=== PATIENT | female | born 1965 | race Caucasian/White ===

== ENCOUNTER 2016-08-24 11:38 | Emergency (ER) | payer BC, OTHER ==
[2016-08-24] MEDS ORDERED: ASPIRIN 81 MG CHEW PO STA (11:55)
--- NOTE | 2016-08-24 11:57 | ED ---
Chest Pain HPI - General Chief Complaint: Chest Pain Stated Complaint: Chest Pain Time Seen by Provider: 08/24/16 11:51 Source: patient, EMS Mode of arrival: EMS Limitations: no limitations - History of Present Illness Initial Comments: This 50-year-old white female presents with a complaint of some chest pain. She describes this as a lower sternal stabbing chest pain that occurred on 2 occasions just shortly prior to arrival. It only lasted 1 second. It then occurred again when she is getting off the gurney onto the cart in the ER. She denies any shortness of breath. She states that it seems radiate posteriorly when it occurs. There is no current chest pain. She denies any history of previous similar incidents. She denies a history of coronary artery disease, myocardial infarction, DVT, or PE. There is no leg pain or swelling. She denies any trauma to the chest. No other complaints or modifying factors. No abdominal pain. - Related Data Home Medications Medication Instructions Recorded Confirmed No Known Home Medications [No 08/24/16 08/24/16 Known Home Medications] Allergies Allergy/AdvReac Type Severity Reaction Status Date / Time No Known Allergies Allergy Verified 08/24/16 12:24 Review of Systems ROS Statement: Those systems with pertinent positive or pertinent negative responses have been documented in the HPI. ROS Other: All systems not noted in ROS Statement are negative. Past Medical History Past Medical History: No Reported History History of Any Multi-Drug Resistant Organisms: None Reported Past Surgical History: Hernia Repair Additional Past Surgical History / Comment(s): DNC Past Psychological History: No Psychological Hx Reported Smoking Status: Current every day smoker Past Alcohol Use History: Occasional Past Drug Use History: None Reported General Exam - General Exam Comments Initial Comments: GENERAL: The patient is well nourished and well hydrated. VITAL SIGNS: Heart rate, blood pressure, respiratory rate reviewed as recorded in nurse's notes. EYES: Pupils are round and reactive. Extraocular movements are intact. No conjunctival / lid redness or swelling. ENT: No external evidence of injury, swelling, or ecchymosis. Airway is patent. Throat is clear. NECK: Nontender. No swelling or evidence of injury. No subcutaneous emphysema. Trachea is midline. No thyroid mass. HEART: Regular rate and rhythm. Good peripheral pulses. LUNGS/CHEST: Breath sounds clear and equal bilaterally. No rales, rhonchi, or wheezes. No ecchymosis, subcutaneous emphysema, or tenderness. ABDOMEN: Abdomen soft without tenderness. No palpable masses or organomegaly. No peritoneal signs. No abdominal wall swelling or ecchymosis. EXTREMITIES: No extremity tenderness. Normal muscle tone and function. No thoracolumbar tenderness. No calf swelling. NEUROLOGIC: Sensation is grossly intact. Cranial nerve exam reveals face is symmetrical, tongue is midline, speech is clear. SKIN: No abrasions or ecchymosis is noted. No induration or masses noted. PSYCHIATRIC: Alert and oriented. Appropriate behavior and judgment. Limitations: no limitations Course Vital Signs 08/24/16 08/24/16 08/24/16 11:48 13:31 14:32 Temperature 97.9 F 97.4 F L Pulse Rate 87 63 53 L Respiratory 18 18 16 Rate Blood Pressure 158/90 153/78 131/72 O2 Sat by Pulse 100 100 99 Oximetry Chest Pain MDM - MDM The patient was seen and examined. All diagnostics were reviewed. EKG was done and shows a normal sinus rhythm at a rate of 67. There is evidence of a left axis deviation. There is no ST elevation. There is nonspecific ST-T wave changes noted in 3 and aVF. The FL interval is 170, QRS duration is 72, and QTC intervals 433. The chest x-ray was reviewed by myself and does not show any acute abnormalities. The laboratories all essentially within normal limits with a negative troponin and d-dimer. Her chest pain appears to be fairly atypical for any cardiac ischemic disorder. Nevertheless, she is offered admission to the hospital for further workup. She refuses. Risks benefits were discussed. Return parameters are discussed. She leaves in no identifiable distress. She's not had any further episodes while in the ER. Is felt as though she should have close follow-up with her primary doctor and stress testing preferably within the next 2 days. She is agreeable leaves in no distress. Disposition Clinical Impression: Chest pain Disposition: HOME SELF-CARE Condition: Good Instructions: Chest Pain (ED) Additional Instructions: Please take an aspirin daily. Referrals: Will Andino DO [Primary Care Provider] - 1-2 days Time of Disposition: 14:53
[2016-08-24 12:16] LABS: Basophils % (A) 0 %; CH 34.4; CHCM 33.3; Eosinophils # (A) 0.1 k/uL (0-0.7); Eosinophils % (A) 1 %; HCT 39.4 % (34.0-46.0); HDW 1.79; HGB 13.1 gm/dL (11.4-16.0); Luc # (Auto) 0.09; Luc % (Auto) 3; Lymphocytes # (A) 1.5 k/uL (1.0-4.8); Lymphocytes % (A) 42 %; MCH 34.6 pg (25.0-35.0); MCHC 33.4 g/dL (31.0-37.0); MCV 103.9 fL (80.0-100.0); Macrocytosis Slight; Mean Platelet Volume 7.5; Monocytes # (A) 0.3 k/uL (0-1.0); Monocytes % (A) 9 %; Neutrophils # (A) 1.6 k/uL (1.3-7.7); Neutrophils % (A) 45 %; RBC 3.79 m/uL (3.80-5.40); RDW 12.4 % (11.5-15.5); WBC 3.6 k/uL (3.8-10.6); WBC (Perox) 3.64
[2016-08-24 12:29] LABS: INR 1.1 (<1.1); Partial Thromboplastin Time 24.9 sec (22.0-30.0); Prothrombin Time 10.7 sec (9.0-12.0)
[2016-08-24 12:36] LABS: ALT 26 U/L (9-52); AST 29 U/L (14-36); Alkaline Phosphatase 56 U/L (38-126); Anion Gap 8 mmol/L; Blood Urea Nitrogen 6 mg/dL (7-17); Calcium 9.1 mg/dL (8.4-10.2); Carbon Dioxide 26 mmol/L (22-30); Chloride 103 mmol/L (98-107); Glucose 89 mg/dL (74-99); Magnesium 1.8 mg/dL (1.6-2.3); Non-African American GFR(MDRD) >60 (>60 ml/min/1.73 sqM); Potassium 3.8 mmol/L (3.5-5.1); Sodium 137 mmol/L (137-145); Total Protein 7.4 g/dL (6.3-8.2)
[2016-08-24 12:39] LABS: Creatine Kinase 54 U/L (30-135)
[2016-08-24 12:52] LABS: Creatine Kinase MB 0.4 ng/mL (0.0-2.4); Troponin I <0.012 ng/mL (0.000-0.034)
[2016-08-24 14:33] VITALS: BP 131/72; PULSE 53; RESP 16; TEMP 97.4
--- NOTE | 2016-08-24 14:54 | XR ---
EXAMINATION TYPE: XR chest 2V DATE OF EXAM: 08/24/2016 1:32 PM COMPARISON: NONE INDICATION: Chest pain TECHNIQUE: 2 view chest FINDINGS: The heart size is normal. The pulmonary vasculature is normal. The lungs are clear. IMPRESSION: 1. No acute pulmonary process.
== END 2016-08-24 15:01 | disposition home or self-care (01) ==
LOC: EC 11:38
DX: R07.2 Precordial pain (principal); F17.200 Nicotine dependence, unspecified, uncomplicated
CPT/HCPCS: 36415; 71020; 80053; 82550; 82553; 83735; 84484; 85025; 85379; 85610; 85730; 93005; 99285

== ENCOUNTER → 2016-10-05 | Outpatient (CLI) | payer BC, OTHER ==
--- NOTE | 2016-10-06 09:19 | MM ---
Reason for exam: screening (asymptomatic). Last mammogram was performed 12 years and 3 months ago. Physical Findings: A clinical breast exam by your physician is recommended on an annual basis and results should be correlated with mammographic findings. MG Screening Mammo w CAD Bilateral CC and MLO view(s) were taken. Prior study comparison: July 08, 2004, bilateral diagnostic mammogram. January 03, 2002, bilateral screening mammogram, performed at [facility]. The breast tissue is heterogeneously dense. This may lower the sensitivity of mammography. Focal asymmetry far posterior left CC view partially imaged. This finding is changed when compared with previous exams. ASSESSMENT: Incomplete: need additional imaging evaluation, BI-RAD 0 RECOMMENDATION: Special view mammogram of the left breast. If lesion persists on supplemental views, image directed ultrasound is recommended. [facility] will attempt to contact patient to return for supplemental views and ultrasound if indicated.
== END | disposition home or self-care (01) ==
LOC: RADMAMWWP 12:24
PROVIDERS: ATTEND Obstetrics & Gynecology
DX: Z12.31 Encounter for screening mammogram for malignant neoplasm of breast (principal)

== ENCOUNTER → 2016-10-13 | Outpatient (CLI) | payer BC, OTHER ==
--- NOTE | 2016-10-13 08:30 | MM ---
Reason for exam: additional evaluation requested from abnormal screening. Last mammogram was performed less than 1 month ago. Physical Findings: Nurse did not find any significant physical abnormalities on exam. MG Work Up Mamm w CAD LT Spot compression CC and ML view(s) were taken of the left breast. Prior study comparison: October 05, 2016, bilateral MG screening mammo w CAD. July 08, 2004, bilateral diagnostic mammogram. The breast tissue is extremely dense which could obscure a lesion on mammography. There is no discrete abnormality. Compression and ML view normal. These results were verbally communicated with the patient and result sheet given to the patient on 10/13/16. ASSESSMENT: Benign, BI-RAD 2 RECOMMENDATION: Return to routine screening mammogram schedule for both breasts.
== END | disposition home or self-care (01) ==
LOC: RADMAMWWP 07:36
PROVIDERS: ATTEND Obstetrics & Gynecology
DX: R92.8 Other abnormal and inconclusive findings on diagnostic imaging of breast (principal); R92.2 Inconclusive mammogram

== ENCOUNTER → 2017-10-21 | Outpatient (CLI) | payer OTHER ==
--- NOTE | 2017-10-25 08:17 | MM ---
Reason for exam: screening (asymptomatic). Last mammogram was performed 1 year ago. Physical Findings: A clinical breast exam by your physician is recommended on an annual basis and results should be correlated with mammographic findings. MG Screening Mammo w CAD Bilateral CC and MLO view(s) were taken. XCCL view(s) were taken of the right breast. Prior study comparison: October 05, 2016, bilateral MG screening mammo w CAD. There is chronic nodularity in the right breast. No significant changes when compared with prior studies. ASSESSMENT: Negative, BI-RAD 1 RECOMMENDATION: Routine screening mammogram of both breasts in 1 year.
== END | disposition home or self-care (01) ==
LOC: RADMAMWWP 07:18
PROVIDERS: ATTEND Obstetrics & Gynecology
DX: Z12.31 Encounter for screening mammogram for malignant neoplasm of breast (principal)
CPT/HCPCS: 77067

== ENCOUNTER 2019-11-05 09:01 | Day surgery (SDC) | payer OTHER ==
[2019-10-31 14:49] VITALS: BMI 22.3
[~2019-11-05 09:01] MED LIST: LIDOCAINE 1% (10MG/ML) FOR IV START INTRADERMA PRN
[2019-11-05 09:37] VITALS: RESP 16; TEMP 98.4
[2019-11-05] MEDS: LACTATED RINGERS 1,000 ML IV SCH ×2 (09:48→09:49)
[2019-11-05] MEDS ORDERED: PROPOFOL 10 MG/ML 20 ML VIAL IV ONE (09:48)
--- NOTE | 2019-11-05 10:16 | P.PCN ---
Date of Procedure: 11/05/19 Description of Procedure: BRIEF HISTORY: Patient is a 54-year-old female presenting for outpatient colonoscopy. Screening for malignant neoplasm colon. No change in bowel habits. No family history of colon cancer. No prior colonoscopy. PROCEDURE PERFORMED: Colonoscopy. PREOPERATIVE DIAGNOSIS: Screening for malignant neoplasm of the colon, no prior colonoscopy. ESTIMATED BLOOD LOSS: Minimal. IV sedation per Anesthesia. PROCEDURE: After informed consent was obtained, the patient, was brought into the endoscopy unit. IV sedation was administered by Anesthesia under continuous monitoring. Digital rectal examination was normal. Initially the Olympus CF-190 flexible video colonoscope was then inserted in the rectum, gradually advanced into the cecum without any difficulty. Careful examination was performed as the scope was gradually being withdrawn. Ileocecal valve and the appendiceal orifice were visualized and appeared normal. Prep was excellent. Mucosa of the cecum, ascending colon, transverse colon, descending colon, sigmoid colon, and rectum appeared normal, somewhat redundant and dilated however no abnormalities seen. Retroflexion was performed in the rectum and no lesions were seen, low-grade internal hemorrhoids noted. The patient tolerated the procedure well. IMPRESSION: Normal-appearing colon from rectum to cecum . RECOMMENDATIONS: Findings of this examination were discussed with the patient. Okay to resume diet. Okay to resume medication. Would recommend repeat colonoscopy in 10 years for screening, or sooner if any signs or symptoms which warrant further evaluation develop.
[2019-11-05 10:52] VITALS: BP 137/82; PULSE 67
== END 2019-11-05 11:13 | disposition home or self-care (01) ==
LOC: ORWHC2ENDO 09:01
PROVIDERS: ATTEND Internal Medicine
DX: Z12.11 Encounter for screening for malignant neoplasm of colon (principal); I34.0 Nonrheumatic mitral (valve) insufficiency; F17.200 Nicotine dependence, unspecified, uncomplicated; Z98.890 Other specified postprocedural states
CPT/HCPCS: 81025; J2704; G0121

== ENCOUNTER → 2020-01-25 | Outpatient (CLI) | payer OTHER ==
--- NOTE | 2020-01-29 12:01 | MM ---
Reason for exam: screening (asymptomatic). Last mammogram was performed 2 years and 3 months ago. History: Family history of breast cancer in maternal grandmother at age 60. Physical Findings: A clinical breast exam by your physician is recommended on an annual basis and results should be correlated with mammographic findings. MG Screening Mammo w CAD Bilateral CC and MLO view(s) were taken. Prior study comparison: October 21, 2017, bilateral MG screening mammo w CAD. October 13, 2016, left breast MG work up mamm w CAD LT. The breast tissue is heterogeneously dense. This may lower the sensitivity of mammography. Benign appearing bilateral calcifications. No significant changes when compared with prior studies. ASSESSMENT: Benign, BI-RAD 2 RECOMMENDATION: Routine screening mammogram of both breasts in 1 year.
== END | disposition home or self-care (01) ==
LOC: RADMAMWWP 16:25
PROVIDERS: ATTEND Obstetrics & Gynecology
DX: Z12.31 Encounter for screening mammogram for malignant neoplasm of breast (principal)
CPT/HCPCS: 77067

== ENCOUNTER → 2022-02-09 | Outpatient (CLI) | payer BC ==
--- NOTE | 2022-02-10 08:26 | MM ---
Reason for Exam: Screening (asymptomatic). Last mammogram was performed 2 year(s) and 1 month(s) ago. Patient History: Menarche at age 15. First Full-Term at age 24. Postmenopausal. Maternal grandmother had breast cancer, age 60. Last menstrual period: Risk Values: Naomi 5 year model risk: 1.0%. NCI Lifetime model risk: 6.7%. Prior Study Comparison: 10/13/2016 Left Diagnostic Mammogram, [facility]. 10/21/2017 Bilateral Screening Mammogram, [facility]. 01/25/2020 Bilateral Screening Mammogram, [facility]. Tissue Density: The breast tissue is heterogeneously dense. This may lower the sensitivity of mammography. Findings: Analyzed By CAD. There is no suspicious group of microcalcifications or new suspicious mass in either breast. Overall Assessment: Negative, BI-RAD 1 Management: Screening Mammogram of both breasts in 1 year. A clinical breast exam by your physician is recommended on an annual basis and results should be correlated with mammographic findings. Electronically signed and approved by: Quinn Vera M.D. Radiologis
== END | disposition home or self-care (01) ==
LOC: RADMAMWWP 16:26
PROVIDERS: ATTEND Family Medicine
DX: Z12.31 Encounter for screening mammogram for malignant neoplasm of breast (principal); Z78.0 Asymptomatic menopausal state; Z80.3 Family history of malignant neoplasm of breast
CPT/HCPCS: 77067

== ENCOUNTER → 2024-08-06 | Outpatient (CLI) | payer BC ==
--- NOTE | 2024-08-06 07:33 | MM ---
Reason for Exam: Screening (asymptomatic). Last mammogram was performed 2 year(s) and 5 month(s) ago. Patient History: Menarche at age 15. First Full-Term at age 24. Postmenopausal. Patient has history of breast feeding. Maternal grandmother had breast cancer, age 60. Risk Values: Naomi 5 year model risk: 1.0%. NCI Lifetime model risk: 6.5%. Prior Study Comparison: 10/21/2017 Bilateral Screening Mammogram, [facility]. 01/25/2020 Bilateral Screening Mammogram, [facility]. 02/09/2022 Bilateral MG screening mammo w CAD, [facility]. Tissue Density: The breasts are heterogeneously dense, which may obscure small masses. Findings: Analyzed By CAD. There is new 7 mm focal asymmetry, possible obscured mass in the outer posterior aspect right breast on CC view not clearly seen on MLO view . Overall Assessment: Incomplete: need additional imaging evaluation, BI-RAD 0 Management: Special View Mammogram of the right breast. Return for additional spot 3-D and 3-D true lateral views right breast. Patient should continue monthly self-breast exams. A clinical breast exam by your physician is recommended on an annual basis. This exam should not preclude additional follow-up of suspicious palpable abnormalities. Note on Naomi scores and lifetime risk: 1. A Naomi score greater than 3% is considered moderate risk. If this is the case, consider specialist referral to assess eligibility for a risk reducing agent. 2. If overall lifetime risk for the development of breast cancer is 20% or higher, the patient may qualify for future screening with alternating mammogram and breast MRI. [facility], , 08/06/2024 7:30 AM. Electronically signed and approved by: Robby Turner M.D.
== END | disposition home or self-care (01) ==
LOC: RADMAMWWP 06:54
PROVIDERS: ATTEND Obstetrics & Gynecology
DX: Z12.31 Encounter for screening mammogram for malignant neoplasm of breast (principal); R92.333 Mammographic heterogeneous density, bilateral breasts; Z78.0 Asymptomatic menopausal state; Z80.3 Family history of malignant neoplasm of breast
CPT/HCPCS: 77067

== ENCOUNTER → 2024-08-07 | Outpatient (CLI) | payer BC ==
--- NOTE | 2024-08-07 08:13 | MM ---
Reason for Exam: Additional evaluation requested from abnormal screening. Last screening mammogram was performed less than 1 month ago. Patient History: Menarche at age 15. First Full-Term at age 24. Postmenopausal. Patient has history of breast feeding. Maternal grandmother had breast cancer, age 60. Risk Values: Naomi 5 year model risk: 1.0%. NCI Lifetime model risk: 6.5%. Prior Study Comparison: 07/08/2004 Bilateral Diagnostic Mammogram, [facility]. 07/08/2004 Right Diagnostic Ultrasound, [facility]. 10/05/2016 Bilateral Screening Mammogram, [facility]. 10/13/2016 Left Diagnostic Mammogram, [facility]. 10/21/2017 Bilateral Screening Mammogram, [facility]. 01/25/2020 Bilateral Screening Mammogram, [facility]. 02/09/2022 Bilateral MG screening mammo w CAD, [facility]. 08/06/2024 Bilateral MG screening mammo w CAD, [facility]. Tissue Density: Right: The breasts are heterogeneously dense, which may obscure small masses. Findings: Analyzed By CAD. A 6 mm focal asymmetry does not go completely away approximately 6 cm distance from the nipple in the outer upper quadrant. Uncertain if true lesion versus prominent tissue as not dramatically different from prior mammograms. Overall Assessment: Incomplete: need additional imaging evaluation, BI-RAD 0 Management: Diagnostic Breast Ultrasound of the right breast. Precautionary targeted right breast ultrasound. Results were given to the patient verbally at the time of exam. Patient should continue monthly self-breast exams. A clinical breast exam by your physician is recommended on an annual basis. This exam should not preclude additional follow-up of suspicious palpable abnormalities. Note on Naomi scores and lifetime risk: 1. A Naomi score greater than 3% is considered moderate risk. If this is the case, consider specialist referral to assess eligibility for a risk reducing agent. 2. If overall lifetime risk for the development of breast cancer is 20% or higher, the patient may qualify for future screening with alternating mammogram and breast MRI. [facility], , 08/07/2024 7:48 AM. Electronically signed and approved by: Robby Turner M.D.
--- NOTE | 2024-08-07 08:14 | USB ---
Reason for Exam: Additional evaluation requested from abnormal screening. Patient History: Menarche at age 15. First Full-Term at age 24. Postmenopausal. Patient has history of breast feeding. Maternal grandmother had breast cancer, age 60. Risk Values: Naomi 5 year model risk: 1.0%. NCI Lifetime model risk: 6.5%. Technique: Method: Targeted. Prior Study Comparison: 01/25/2020 Bilateral Screening Mammogram, [facility]. 02/09/2022 Bilateral MG screening mammo w CAD, [facility]. 08/06/2024 Bilateral MG screening mammo w CAD, [facility]. Findings: The upper outer quadrant of the right breast, the axilla of the right breast and the retroareolar of the right breast were scanned. Targeted ultrasound shows a 3 x 4 x 8 mm simple benign-appearing lymph node 10:00 position 6 cm distance from nipple which likely corresponds to mammogram abnormality. Overall Assessment: Benign, BI-RAD 2 Management: Screening Mammogram of both breasts in 1 year. Return to routine follow-up. A clinical breast exam by your physician is recommended on an annual basis and results should be correlated with mammographic findings. This exam should not preclude additional follow-up of suspicious palpable abnormalities. Results were given to the patient verbally at the time of exam. [facility], , 08/07/2024 8:11 AM. Electronically signed and approved by: Robby Turner M.D.
== END | disposition home or self-care (01) ==
LOC: RADMAMWWP 07:16
PROVIDERS: ATTEND Obstetrics & Gynecology
DX: R92.8 Other abnormal and inconclusive findings on diagnostic imaging of breast (principal); R92.331 Mammographic heterogeneous density, right breast; Z78.0 Asymptomatic menopausal state; Z80.3 Family history of malignant neoplasm of breast
CPT/HCPCS: 77061; 77065